=== PATIENT | male | born 1950 | race Caucasian/White ===

== ENCOUNTER → 2024-03-03 13:00 | Outpatient (REF) | payer MEDICARE, SELFPAY | LOC: RCS 13:00 | PROVIDERS: ATTENDING PHYSICIAN Family Medicine | DX: R06.02 Shortness of breath (principal) | CPT/HCPCS: 93017 ==

== ENCOUNTER → 2024-03-08 10:35 | Outpatient (REF) | payer MEDICARE, SELFPAY | LOC: RCS 10:35 | PROVIDERS: ATTENDING PHYSICIAN Family Medicine | DX: R06.02 Shortness of breath (principal) | CPT/HCPCS: 93306 ==

== ENCOUNTER → 2024-03-25 12:07 | Outpatient (REF) | payer MEDICARE, SELFPAY | LOC: RAD 12:07 | PROVIDERS: ATTENDING PHYSICIAN Family Medicine | DX: R06.02 Shortness of breath (principal) | CPT/HCPCS: 94727; 94729; 88738; 94060 ==

== ENCOUNTER → 2024-03-26 11:01 | Outpatient (REF) | payer MEDICARE, SELFPAY | LOC: RAD 11:01 | PROVIDERS: ATTENDING PHYSICIAN Internal Medicine Gastroenterology; FAMILY PHYSICIAN Family Medicine | DX: K86.2 Cyst of pancreas (principal) | CPT/HCPCS: 74178; Q9967 ==

== ENCOUNTER 2024-03-28 15:51 | Emergency (ER) | payer MEDICARE, SELFPAY ==
[2024-03-28 15:59] VITALS: BP 138/98
[2024-03-28 16:38] LABS: % Basophils 0.7 % (0-2); % Eosinophils 0.9 % (0-6); % Immature Granulocytes 0.3 % (0-0.5); % Lymphocytes 14.7 % (20.5-51.1); % Monocytes 11.9 % (1.7-9.3); % Neutrophils 71.5 % (42.2-75.2); Absolute Basophils 0.1 10^3/uL (0-0.2); Absolute Eosinophils 0.1 10^3/uL (0-0.7); Absolute Lymphocytes 1.1 10^3/uL (1.2-3.4); Absolute Monocytes 0.9 10^3/uL (0.1-0.6); Absolute Neutrophils 5.3 10^3/uL (1.4-6.5); Hematocrit 33.1 % (39.0-52.0); Hemoglobin 11.6 g/dL (13.0-18.0); Mean Corpuscular Hgb 32.9 pg (27.0-31.0); Mean Corpuscular Volume 93.8 fL (80.0-94.0); Nucleated Red Blood Cells % 0 % (-); Platelet Count 245 10^3/uL (130-400); Red Blood Cell Count 3.53 10^6/uL (4.70-6.10); Red Cell Dist. Width 13.1 % (11.5-14.5); White Blood Cell Count 7.5 10^3/uL (4.8-10.8)
[2024-03-28 16:45] LABS: APTT 26.6 Sec (23.4-35.0)
[2024-03-28 16:56] LABS: ALT (SGPT) 17 U/L (0-50); AST (SGOT) 25 U/L (17-59); Alkaline Phosphatase 79 U/L (38-126); Blood Urea Nitrogen 21 mg/dl (9-20); Calcium 9.3 mg/dl (8.4-10.2); Carbon Dioxide 22 mmol/L (22-30); Chloride 102 mmol/L (98-107); Glucose 103 mg/dl (70-99); Potassium 4.8 mmol/L (3.5-5.1); Sodium 138 mmol/L (135-145); Total Bilirubin 0.4 mg/dl (0.2-1.3); eGFR > 60.00
[2024-03-28 17:50] VITALS: BMI 20.6
[2024-03-28 17:55] VITALS: BP 140/81
[2024-03-28 18:00] VITALS: BP 138/77
--- NOTE | 2024-03-28 18:20 | ED.GENMED ---
History of Present Illness
General
Chief Complaint: Weakness
Source: patient
Exam Limitations: none
Time Seen by Provider: 03/28/24 17:59
History of Present Illness
History of Present Illness:
This is a 74 year old male that comes in with c/o a renal infarction. Patient states that he had a CT scan done on the . States that this is a routine CT every 2 years as they are watching a pancreatic cyst. States that they wound a right renal
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 States that he has no pain and who knows how long this has been there. States that he went to see the PCP today and he was told to come to the ER. States that he does have issues with urinary
frequency. Denies any fever, chills, chest pain, SOB, abd pain, nausea, vomiting, diarrhea, headache, dizziness, urinary burning.
Past History
Past History
ED Past Medical History: Arrthythmia (Atrial fib), Other (IBS, Headaches, GI bleeding, ) and Other (Diverticulosis with bleeding)
ED Past Surgical History: Urological (Right testical removed. ) and Other (Hemorrhoid surgery, )
Social History
Tobacco: Non-smoker
Alcohol: Occasional
Drug: None
Personal:
Living: with family
Review of Systems
Review of Systems
All Other Systems: ROS reviewed and negative except as documented in HPI and ROS
Constitutional: Reports no symptoms; Denies fever or chills
EENT: Reports no symptoms
Respiratory: Reports no symptoms; Denies cough or trouble breathing
Cardiac: Reports no symptoms; Denies chest pain
ABD/GI: Reports no symptoms; Denies abdominal pain, nausea, vomiting or diarrhea
: Reports frequency; Denies dysuria or urgency
Musculoskeletal: Reports no symptoms
Skin: Reports no symptoms
Neurological: Reports no symptoms; Denies dizzy or headache
Psychiatric: Reports no symptoms
Phy Exam
General Physical Exam
General Presentation: well appearing and no apparent distress
General age: appears stated age
General Skin: warm and dry
General Habitus: elderly
General Mental: alert
General Hydration: appears well hydrated
ENT Exam
ENT Exam: TM's normal, pharynx normal and neck supple
Eye Exam
Eye Exam: EOMI
Cardiovascular Exam
Cardiovascular Exam: regular rate/rhythm, no edema and normal peripheral pulses
Pulmonary Exam
Pulmonary Exam: lungs clear, no respiratory distress, no rales, chest non tender, no crackles, no rhonchi, no wheezing and no cough
Gastrointestinal Exam
Gastrointestinal Exam: normal bowel sounds, non tender, soft, no organomegaly, no pulsatile mass and non distended
Musculoskeletal Exam
Musculoskeletal Exam: full ROM and no edema
Skin Exam
Skin Exam: normal color, warm/dry, no rash and no petechia
Psychiatric Exam
Psychiatric Exam: normal mood/affect
Course
Orders/Labs/Results
Orders:
Orders
03/28/24 16:15
Complete Blood Count/With Diff Urgent
Comprehensive Metabolic Panel Urgent
PTT Urgent
Abnormal Lab Results
03/28/24
16:15
RBC 3.53 L 10^6/uL
(4.70-6.10)
Hgb 11.6 L g/dL
(13.0-18.0)
Hct 33.1 L %
(39.0-52.0)
MCH 32.9 H pg
(27.0-31.0)
MPV 11.0 H fL
(7.4-10.4)
Absolute Lymphs (auto) 1.1 L 10^3/uL
(1.2-3.4)
Absolute Monos (auto) 0.9 H 10^3/uL
(0.1-0.6)
Lymphocytes % 14.7 L %
(20.5-51.1)
Monocytes % 11.9 H %
(1.7-9.3)
BUN 21 H mg/dl
(9-20)
Glucose 103 H mg/dl
(70-99)
03/28/24 16:15
03/28/24 16:15
H/H slightly low. Slight Dehydration. Glucose nonfasting. PTT 26.6
Vital Signs
Initial and Last Documented VS:
Initial Vital Signs
Temp Pulse Resp BP Pulse Ox
98.3 F 69 18 138/98 93
03/28/24 15:59 03/28/24 15:59 03/28/24 15:59 03/28/24 15:59 03/28/24 15:59
Last Documented Vital Signs
Temp Pulse Resp BP Pulse Ox
98.3 F 73 18 138/77 98
03/28/24 15:59 03/28/24 18:00 03/28/24 18:04 03/28/24 18:00 03/28/24 18:05
MDM/Problems Addressed
Differential Diagnosis Includes:
Renal vein Thrombosis
MDM/Problems Addressed:
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 States that this CT was done as a routine CT every 2 years as they are watching his Pancreatic cyst. States that these findings
were found and the PCP sent him in. Patient states that he does not want to stay.
Will check labs. Spoke with Dr. Crowley and Dr. Bruce. They are both in agreement that at this time nothing needs to be done in the hospital. Will start patient on Eliquis and have patient follow up with the Mining Engineering Technologist for further evaluation. Patient to
return with any concerns.
Chronic conditions affecting care:
NA
Acute Exacerbation and/or Progression of Chronic Illness:
NA
*Pulse Oximetry
Patient hypoxic: no
*EKG
Interpreted by ED Provider?: NA
Rate: EKG- N/A
*Traffic Workforce Representative Interpretation
Rate: normal
Heart Rate: 71
*Critical Care Note
Total Time (30-74mins, 75-104mins- exclusive of procedures): Not Applicable
ED Attending Note
-
Portions of this chart may have been created with voice recognition software.� Occasional wrong word or��sound alike� substitutions may have occurred due to the inherent limitations of voice recognition software.
Discharge Plan
Departure
Patient Disposition: Home (Routine Discharge)
Date of Disposition: 03/28/24
Time of Disposition: 18:55
Patient with high blood pressure during this ER visit?: Yes
Condition: Good
Covid-19: Not Applicable
Discharge Problem:
renal infarction with Vein Thrombosis
Instructions: BLOOD PRESSURE
Prescriptions:
New
Eliquis 5 mg tablet
10 mg PO BID 7 Days Qty: 28 0RF
No Action
multivitamin with folic acid [Tab-A-Yossi] 1 TABLET tablet
1 tab PO DAILY
alfuzosin 10 MG tablet extended release 24 hr
10 mg PO DAILY
bimatoprost [Lumigan] 1 DROP drops
1 drp ophthalmic (eye) DAILY
psyllium husk [Konsyl Sugar-Free] 0.52 GM capsule
0.52 gm PO DAILY Qty: 30 0RF
Referrals:
Milton Espinosa, [Active] - Follow up in 2-3 days
Ronda Gee MD [Family Provider] -
Activity Restrictions/Additional Instructions:
As discussed, your blood work shows very slight Dehydration. Please increase your water intake to 8-8oz glasses daily. After speaking with Bufferer and Vascular surgery they are in agreement that you can go home on a blood thinner. You have been
started on Eliquis 10mg BID for the next 7 days. You will need to follow up with the family doctor in 2-3 days as they will give your a second prescription as the dosage will be decreased at that time to 5mg. You will also need to follow up with the
Mining Engineering Technologist for further evaluation in the next 2-3 days. IF YOU HAVE PAIN, BLEEDING OR YOU HAVE ANY OTHER CONCERNS PLEASE RETURN TO THE EMERGENCY ROOM.
Interventions
Interventions:
*Risk Screen - Suicide Last Done: 03/28/24 15:54
*General Assessment Last Done: 03/28/24 15:59
*Neglect/Abuse Screening Last Done: 03/28/24 17:51
ED- Fall Risk Assessment Last Done: 03/28/24 18:07
*ED COVID-19 Vaccine History Last Done: 03/28/24 17:51
ED- Cardiac Assessment Last Done: 03/28/24 18:05
ED- Neurological Assessment Last Done: 03/28/24 18:05
ED- Pulmonary Assessment Last Done: 03/28/24 18:05
Discharge Date and Time
Print Language: DUTCH
[2024-03-28 19:00] VITALS: BP 127/83
[2024-03-28] MEDS: ELIQUIS 10 MG PO (19:02)
== END 2024-03-28 19:24 | disposition home or self-care (01) ==
LOC: EMR 15:51
PROVIDERS: Emergency Medicine; EMERGENCY PHYSICIAN Emergency Medicine; FAMILY PHYSICIAN Family Medicine
DX: N28.0 Ischemia and infarction of kidney (principal); I82.3 Embolism and thrombosis of renal vein
CPT/HCPCS: 99283; 80053; 85025; 85730

== ENCOUNTER → 2024-06-09 15:14 | Outpatient (REF) | payer MEDICARE, SELFPAY ==
[2024-06-09 11:35] LABS: % Basophils 0.5 % (0-2); % Eosinophils 0.8 % (0-6); % Immature Granulocytes 0.5 % (0-0.5); % Lymphocytes 13.5 % (20.5-51.1); % Monocytes 12.6 % (1.7-9.3); % Neutrophils 72.1 % (42.2-75.2); Absolute Eosinophils 0.1 10^3/uL (0-0.7); Absolute Monocytes 0.9 10^3/uL (0.1-0.6); Absolute Neutrophils 5.3 10^3/uL (1.4-6.5); Hematocrit 35.1 % (39.0-52.0); Hemoglobin 11.2 g/dL (13.0-18.0); Mean Corp Hgb Conc. 31.9 g/dL (33.0-37.0); Mean Corpuscular Volume 100.3 fL (80.0-94.0); Mean Platelet Volume 11.4 fL (7.4-10.4); Nucleated Red Blood Cells % 0 % (-); Platelet Count 264 10^3/uL (130-400); Red Cell Dist. Width 13.5 % (11.5-14.5); White Blood Cell Count 7.4 10^3/uL (4.8-10.8)
== END ==
LOC: OIDL 15:14
PROVIDERS: ATTENDING PHYSICIAN Internal Medicine Hematology & Oncology
DX: I82.3 Embolism and thrombosis of renal vein (principal); D50.0 Iron deficiency anemia secondary to blood loss (chronic)
CPT/HCPCS: 85025

== ENCOUNTER → 2024-06-23 13:40 | Outpatient (REF) | payer MEDICARE, SELFPAY ==
[2024-06-23 14:10] LABS: % Basophils 0.6 % (0-2); % Eosinophils 1.3 % (0-6); % Immature Granulocytes 0.4 % (0-0.5); % Lymphocytes 16.3 % (20.5-51.1); % Monocytes 13.8 % (1.7-9.3); % Neutrophils 67.6 % (42.2-75.2); Absolute Eosinophils 0.1 10^3/uL (0-0.7); Absolute Lymphocytes 1.1 10^3/uL (1.2-3.4); Absolute Monocytes 0.9 10^3/uL (0.1-0.6); Absolute Neutrophils 4.6 10^3/uL (1.4-6.5); Hematocrit 30.8 % (39.0-52.0); Hemoglobin 9.9 g/dL (13.0-18.0); Mean Corp Hgb Conc. 32.1 g/dL (33.0-37.0); Mean Corpuscular Hgb 31.6 pg (27.0-31.0); Mean Corpuscular Volume 98.4 fL (80.0-94.0); Mean Platelet Volume 11.3 fL (7.4-10.4); Nucleated Red Blood Cells % 0 % (-); Platelet Count 247 10^3/uL (130-400); Red Blood Cell Count 3.13 10^6/uL (4.70-6.10); Red Cell Dist. Width 14.2 % (11.5-14.5); White Blood Cell Count 6.8 10^3/uL (4.8-10.8)
== END ==
LOC: OIDL 13:40
PROVIDERS: ATTENDING PHYSICIAN Internal Medicine Hematology & Oncology
DX: I82.3 Embolism and thrombosis of renal vein (principal); D50.0 Iron deficiency anemia secondary to blood loss (chronic)
CPT/HCPCS: 85025

== ENCOUNTER 2024-06-30 13:27 | Emergency (ER) | payer MEDICARE, SELFPAY ==
[2024-06-30 13:30] VITALS: BP 134/77
[2024-06-30 15:03] LABS: % Basophils 0.6 % (0-2); % Eosinophils 1.2 % (0-6); % Immature Granulocytes 0.3 % (0-0.5); % Lymphocytes 13.7 % (20.5-51.1); % Monocytes 12.3 % (1.7-9.3); % Neutrophils 71.9 % (42.2-75.2); Absolute Basophils 0.1 10^3/uL (0-0.2); Absolute Eosinophils 0.1 10^3/uL (0-0.7); Absolute Lymphocytes 1.2 10^3/uL (1.2-3.4); Absolute Monocytes 1.1 10^3/uL (0.1-0.6); Absolute Neutrophils 6.3 10^3/uL (1.4-6.5); Hematocrit 31.8 % (39.0-52.0); Hemoglobin 10.7 g/dL (13.0-18.0); Mean Corp Hgb Conc. 33.6 g/dL (33.0-37.0); Mean Corpuscular Hgb 32.3 pg (27.0-31.0); Mean Corpuscular Volume 96.1 fL (80.0-94.0); Mean Platelet Volume 10.5 fL (7.4-10.4); Nucleated Red Blood Cells % 0 % (-); Platelet Count 267 10^3/uL (130-400); Red Blood Cell Count 3.31 10^6/uL (4.70-6.10); Red Cell Dist. Width 14.2 % (11.5-14.5); White Blood Cell Count 8.8 10^3/uL (4.8-10.8)
[2024-06-30 15:18] LABS: ALT (SGPT) 35 U/L (0-50); AST (SGOT) 43 U/L (17-59); Albumin 4.1 g/dl (3.5-5.0); Alkaline Phosphatase 128 U/L (38-126); Blood Urea Nitrogen 17 mg/dl (9-20); Calcium 9.3 mg/dl (8.4-10.2); Carbon Dioxide 27 mmol/L (22-30); Chloride 102 mmol/L (98-107); Glucose 95 mg/dl (70-99); Potassium 4.8 mmol/L (3.5-5.1); Sodium 135 mmol/L (135-145); Total Bilirubin 0.3 mg/dl (0.2-1.3); Total Protein 7.6 g/dl (6.3-8.2); eGFR > 60.00
--- NOTE | 2024-06-30 15:42 | ED.GENMED ---
History of Present Illness
General
Chief Complaint: Fall
Time Seen by Provider: 06/30/24 14:16
History of Present Illness
History of Present Illness:
74-year-old male with history of A-fib on Eliquis presents to the emergency department for evaluation after a fall 2 nights ago. He apparently was up as his normal in the middle the night for a trip to the bathroom when he fell to the ground and
potentially struck his head. He denies head strike but his is insistent that he struck his head. He feels generally weak but denies any other complaints. He went to his normal IV iron infusion today at the infusion center and was directed to
the ED for further evaluation
Past History
Past History
ED Past Medical History: Arrthythmia (Atrial fib), Other (IBS, Headaches, GI bleeding, ) and Other (Diverticulosis with bleeding)
ED Past Surgical History: Urological (Right testical removed. ) and Other (Hemorrhoid surgery, )
Social History
Tobacco: Non-smoker
Alcohol: Occasional
Drug: None
Personal:
Living: with family
Review of Systems
Review of Systems
Allergies reviewed?: Yes
All Other Systems: ROS reviewed and negative except as documented in HPI and ROS
Phy Exam
Physical Exam
Physical Exam:
GEN: Well appearing, NAD, WDWN
HEENT: Normocephalic and atraumatic, oral mucosa moist, no scleral icterus, no nasal congestion
Cardiac: Regular rate
Lung: No respiratory distress, no tachypnea
MSK: No gross deformity or injuries
Skin: Good color, no pallor or jaundice, no rashes
Neuro: AO x3; CN II-XII grossly intact. BUE strength 5/5 in all cunningham, sensation intact and symmetric. BLE strength 5/5 in all cunningham, sensation intact and symmetric
Psych: Calm, cooperative
Course
Orders/Labs/Results
Orders:
Orders
06/30/24 13:[address] [CT Head W/o Iv Contrast] Urgent
Comment:
Reason For Exam: fall on eliquis
06/30/24 14:52
Complete Blood Count/With Diff Urgent
Comprehensive Metabolic Panel Urgent
Abnormal Lab Results
06/30/24
14:52
RBC 3.31 L 10^6/uL
(4.70-6.10)
Hgb 10.7 L g/dL
(13.0-18.0)
Hct 31.8 L %
(39.0-52.0)
MCV 96.1 H fL
(80.0-94.0)
MCH 32.3 H pg
(27.0-31.0)
MPV 10.5 H fL
(7.4-10.4)
Absolute Monos (auto) 1.1 H 10^3/uL
(0.1-0.6)
Lymphocytes % 13.7 L %
(20.5-51.1)
Monocytes % 12.3 H %
(1.7-9.3)
Alkaline Phosphatase 128 H U/L
(38-126)
06/30/24 14:52
06/30/24 14:52
Vital Signs
Initial and Last Documented VS:
Initial Vital Signs
Temp Pulse Resp BP Pulse Ox
97.9 F 75 18 134/77 98
06/30/24 13:30 06/30/24 13:30 06/30/24 13:30 06/30/24 13:30 06/30/24 13:30
Last Documented Vital Signs
Temp Pulse Resp BP Pulse Ox
97.9 F 67 19 124/70 98
06/30/24 13:30 06/30/24 16:09 06/30/24 16:09 06/30/24 16:09 06/30/24 13:30
MDM/Problems Addressed
MDM/Problems Addressed:
CT of the head is unremarkable, labs obtained due to the patient's reported weakness, his hemoglobin is baseline, no other abnormalities. Discharged in stable condition
*Critical Care Note
Total Time (30-74mins, 75-104mins- exclusive of procedures): Not Applicable
ED Attending Note
-
Portions of this chart may have been created with voice recognition software.� Occasional wrong word or��sound alike� substitutions may have occurred due to the inherent limitations of voice recognition software.
Discharge Plan
Departure
Patient Disposition: Home (Routine Discharge)
Date of Disposition: 06/30/24
Time of Disposition: 15:42
Patient with high blood pressure during this ER visit?: No
Discharge Problem:
Fall
Instructions: Preventing falls in adults
Prescriptions:
No Action
multivitamin with folic acid [Tab-A-Yossi] 1 TABLET tablet
1 tab PO DAILY
alfuzosin 10 MG tablet extended release 24 hr
10 mg PO DAILY
bimatoprost [Lumigan] 1 DROP drops
1 drp ophthalmic (eye) DAILY
psyllium husk [Konsyl Sugar-Free] 0.52 GM capsule
0.52 gm PO DAILY Qty: 30 0RF
Eliquis 5 mg tablet
10 mg PO BID 7 Days Qty: 28 0RF
Referrals:
Ronda Gee MD [Family Provider] -
Interventions
Interventions:
*Risk Screen - Suicide Last Done: 06/30/24 13:30
*General Assessment Last Done: 06/30/24 13:30
*Neglect/Abuse Screening Last Done: 06/30/24 13:30
*Nursing Disposition Last Done: 06/30/24 16:10
ED-Musculoskeletal Assessment Last Done: 06/30/24 14:29
ED- Neurological Assessment Last Done: 06/30/24 14:29
ED-Skin Assessment Last Done: 06/30/24 14:29
Discharge Date and Time
Discharge Date/Time: 06/30/24 16:10
Print Language: ZIMBABWEAN
[2024-06-30 16:09] VITALS: BP 124/70
== END 2024-06-30 16:10 | disposition home or self-care (01) ==
LOC: EMR 13:27
PROVIDERS: Physician Assistant; EMERGENCY PHYSICIAN Emergency Medicine; FAMILY PHYSICIAN Family Medicine
DX: Z04.3 Encounter for examination and observation following other accident (principal); I48.91 Unspecified atrial fibrillation; Z79.01 Long term (current) use of anticoagulants
CPT/HCPCS: 99284; 70450; 80053; 85025

== ENCOUNTER → 2024-07-07 13:33 | Outpatient (REF) | payer MEDICARE, SELFPAY ==
[2024-07-07 13:42] LABS: % Basophils 0.6 % (0-2); % Eosinophils 2.3 % (0-6); % Immature Granulocytes 0.3 % (0-0.5); % Lymphocytes 15.2 % (20.5-51.1); % Monocytes 14.4 % (1.7-9.3); % Neutrophils 67.2 % (42.2-75.2); Absolute Basophils 0.1 10^3/uL (0-0.2); Absolute Eosinophils 0.2 10^3/uL (0-0.7); Absolute Lymphocytes 1.2 10^3/uL (1.2-3.4); Absolute Monocytes 1.1 10^3/uL (0.1-0.6); Absolute Neutrophils 5.3 10^3/uL (1.4-6.5); Hemoglobin 10.4 g/dL (13.0-18.0); Mean Corp Hgb Conc. 32.5 g/dL (33.0-37.0); Mean Corpuscular Hgb 31.9 pg (27.0-31.0); Mean Corpuscular Volume 98.2 fL (80.0-94.0); Mean Platelet Volume 10.5 fL (7.4-10.4); Platelet Count 267 10^3/uL (130-400); Red Blood Cell Count 3.26 10^6/uL (4.70-6.10); Red Cell Dist. Width 14.2 % (11.5-14.5); White Blood Cell Count 7.9 10^3/uL (4.8-10.8)
== END ==
LOC: OIDL 13:33
PROVIDERS: ATTENDING PHYSICIAN Internal Medicine Hematology & Oncology
DX: I82.3 Embolism and thrombosis of renal vein (principal); D50.0 Iron deficiency anemia secondary to blood loss (chronic)
CPT/HCPCS: 85025

== ENCOUNTER → 2024-08-25 13:39 | Outpatient (REF) | payer MEDICARE, SELFPAY ==
[2024-08-25 13:45] LABS: % Basophils 0.5 % (0-2); % Eosinophils 1.1 % (0-6); % Immature Granulocytes 0.1 % (0-0.5); % Lymphocytes 13.2 % (20.5-51.1); % Monocytes 12.9 % (1.7-9.3); % Neutrophils 72.2 % (42.2-75.2); Absolute Eosinophils 0.1 10^3/uL (0-0.7); Absolute Lymphocytes 1.2 10^3/uL (1.2-3.4); Absolute Monocytes 1.1 10^3/uL (0.1-0.6); Absolute Neutrophils 6.4 10^3/uL (1.4-6.5); Hematocrit 32.3 % (39.0-52.0); Hemoglobin 10.6 g/dL (13.0-18.0); Mean Corp Hgb Conc. 32.8 g/dL (33.0-37.0); Mean Corpuscular Hgb 32.2 pg (27.0-31.0); Mean Corpuscular Volume 98.2 fL (80.0-94.0); Mean Platelet Volume 10.8 fL (7.4-10.4); Platelet Count 292 10^3/uL (130-400); Red Blood Cell Count 3.29 10^6/uL (4.70-6.10); White Blood Cell Count 8.8 10^3/uL (4.8-10.8)
[2024-08-25 14:57] LABS: D-Dimer 0.47 ug/mlFEU (0.00-0.50)
[2024-08-25 15:00] LABS: Nucleated Red Blood Cells % 0 % (-); Reticulocyte Count 1.1 % (0.4-2.8)
[2024-08-25 15:02] LABS: Blood Urea Nitrogen 19 mg/dl (9-20); LDH 196 U/L (120-246)
[2024-08-27 15:41] LABS: Haptoglobin 303 mg/dL (30-200)
== END ==
LOC: OIDL 13:39
PROVIDERS: ATTENDING PHYSICIAN Internal Medicine Hematology & Oncology
DX: I82.3 Embolism and thrombosis of renal vein (principal); D50.0 Iron deficiency anemia secondary to blood loss (chronic)
CPT/HCPCS: 82565; 83010; 83615; 84520; 85025; 85045; 85379

== ENCOUNTER → 2024-08-26 11:32 | Outpatient (REF) | payer MEDICARE, SELFPAY | LOC: RAD 11:32 | PROVIDERS: ATTENDING PHYSICIAN Internal Medicine Hematology & Oncology; FAMILY PHYSICIAN Family Medicine | DX: I82.3 Embolism and thrombosis of renal vein (principal); D50.0 Iron deficiency anemia secondary to blood loss (chronic) | CPT/HCPCS: 74160; Q9967 ==

== ENCOUNTER 2024-09-12 11:23 | Emergency (ER) | payer MEDICARE, SELFPAY ==
[2024-09-12 11:26] VITALS: BP 152/74
--- NOTE | 2024-09-12 11:55 | ED.GENMED ---
History of Present Illness
General
Chief Complaint: Male Genito-Urinary Symptoms
Source: patient and spouse
Exam Limitations: none
Time Seen by Provider: 09/12/24 11:32
Nursing documentation reviewed up to this point in time: agreed with
History of Present Illness
History of Present Illness:
74-year-old male with past medical history of A-fib and previous renal artery thrombosis currently on Eliquis, presenting to the emergency department today with concerns of blood and clots in his urine starting this morning. Did have some
discomfort with urination this morning. Does feel that he has been able to fully urinate. Denies abdominal pain chest pain shortness of breath
Past History
Past History
ED Past Medical History: Arrthythmia (Atrial fib), Other (IBS, Headaches, GI bleeding, ) and Other (Diverticulosis with bleeding)
ED Past Surgical History: Urological (Right testical removed. ) and Other (Hemorrhoid surgery, )
Social History
Tobacco: Non-smoker
Alcohol: Occasional
Drug: None
Personal:
Living: with family
Review of Systems
Review of Systems
Allergies reviewed?: Yes
All Other Systems: ROS reviewed and negative except as documented in HPI and ROS
Phy Exam
Physical Exam
Physical Exam:
GENERAL: Alert , in no apparent distress
EYE: pupils equal and reactive
NECK: Supple, no significant adenopathy.
ENT: o/p clr, mmm.
CARDIAC: Regular rate and rhythm .
LUNGS: Clear breath sounds bilaterally, no acute respiratory distress, no wheezes/rales/rhonchi
ABDOMEN: Soft, without focal tenderness, no r/g, no cvat
NEUROLOGICAL: Alert and oriented, no focal neuro deficits
SKIN: Warm and dry, skin intact.
MUSCULOSKELETAL: No edema, well perfused.
PSYCH: Normal and appropriate interaction.
Course
Orders/Labs/Results
Orders:
Orders
09/12/24 12:34
CBC/With Diff [Complete Blood Count/With Diff] Urgent
CMP [Comprehensive Metabolic Panel] Urgent
Urinalysis Reflex To Culture Urgent
Date Specimen was Collected: 09/12/24
Time Specimen was Collected: 12:33
Urine Microscopic Reflex Cult Urgent
Urine Culture Urgent
VICKEY Source: U
Specimen Description:
Date Specimen was Collected: 09/12/24
Time Specimen was Collected: 12:33
Abnormal Lab Results
09/12/24
12:34
RBC 3.11 L 10^6/uL
(4.70-6.10)
Hgb 9.7 L g/dL
(13.0-18.0)
Hct 29.5 L %
(39.0-52.0)
MCV 94.9 H fL
(80.0-94.0)
MCH 31.2 H pg
(27.0-31.0)
MCHC 32.9 L g/dL
(33.0-37.0)
MPV 11.2 H fL
(7.4-10.4)
Absolute Lymphs (auto) 0.8 L 10^3/uL
(1.2-3.4)
Absolute Monos (auto) 1.1 H 10^3/uL
(0.1-0.6)
Neutrophils % 76.3 H %
(42.2-75.2)
Lymphocytes % 9.3 L %
(20.5-51.1)
Monocytes % 13.0 H %
(1.7-9.3)
Sodium 134 L mmol/L
(135-145)
Albumin 3.4 L g/dl
(3.5-5.0)
Ur Occult Blood Reflex 4+ A
(Negative)
Leukocyte Esterase Rfl 1+ A
(Negative)
Urine RBC >100 A /HPF
(0-2)
Urine Albumin (Reflex) 4+ A
(Neg - Trace)
09/12/24 12:34
09/12/24 12:34
Vital Signs
Initial and Last Documented VS:
Initial Vital Signs
Temp Pulse Resp BP Pulse Ox
98.4 F 71 20 152/74 98
09/12/24 11:26 09/12/24 11:26 09/12/24 11:26 09/12/24 11:26 09/12/24 11:26
Last Documented Vital Signs
Temp Pulse Resp BP Pulse Ox
98.4 F 65 17 160/77 98
09/12/24 11:26 09/12/24 12:35 09/12/24 12:35 09/12/24 12:35 09/12/24 12:45
MDM/Problems Addressed
MDM/Problems Addressed:
74-year-old male presenting to the emergency department today with concerns of blood in his urine. Otherwise vital signs here are normal no abdominal pain CT was obtained here as an outpatient 2 week ago did not show any significant stones in the
kidneys. Here labs without emergent findings. Patient able to urinate here no white blood cells or evidence of infection in the urine advised for close outpatient follow-up with urology and given strict return precautions if he is unable to
urinate at home.
*Critical Care Note
Total Time (30-74mins, 75-104mins- exclusive of procedures): Not Applicable
ED Attending Note
-
Portions of this chart may have been created with voice recognition software.� Occasional wrong word or��sound alike� substitutions may have occurred due to the inherent limitations of voice recognition software.
Discharge Plan
Departure
Patient Disposition: Home (Routine Discharge)
Date of Disposition: 09/12/24
Time of Disposition: 13:47
Patient with high blood pressure during this ER visit?: No
Condition: Good
Covid-19: Not Applicable
Discharge Problem:
Hematuria
Instructions: Blood in the Urine (Hematuria), Adult (DC)
Prescriptions:
No Action
multivitamin with folic acid [Tab-A-Yossi] 1 TABLET tablet
1 tab PO DAILY
alfuzosin 10 MG tablet extended release 24 hr
10 mg PO DAILY
bimatoprost [Lumigan] 1 DROP drops
1 drp ophthalmic (eye) DAILY
psyllium husk [Konsyl Sugar-Free] 0.52 GM capsule
0.52 gm PO DAILY Qty: 30 0RF
Eliquis 5 mg tablet
10 mg PO BID 7 Days Qty: 28 0RF
Referrals:
Shahab Kang MD [Active] - Follow up in 2-3 days
Ronda Gee MD [Family Provider] -
Activity Restrictions/Additional Instructions:
You came to the emergency department today with concerns of blood in your urine. Please help closely with urology. Return for any worsening, new or concerning symptoms.
Interventions
Interventions:
*General Assessment Last Done: 09/12/24 11:26
ED-Male Genitourinary Assessment Last Done: 09/12/24 12:54
Discharge Date and Time
Print Language: MALAWIAN
[2024-09-12 12:35] VITALS: BP 160/77; BMI 21.5
[2024-09-12 12:53] LABS: % Basophils 0.6 % (0-2); % Eosinophils 0.6 % (0-6); % Immature Granulocytes 0.2 % (0-0.5); % Lymphocytes 9.3 % (20.5-51.1); % Neutrophils 76.3 % (42.2-75.2); Absolute Basophils 0.1 10^3/uL (0-0.2); Absolute Eosinophils 0.1 10^3/uL (0-0.7); Absolute Lymphocytes 0.8 10^3/uL (1.2-3.4); Absolute Monocytes 1.1 10^3/uL (0.1-0.6); Absolute Neutrophils 6.5 10^3/uL (1.4-6.5); Hematocrit 29.5 % (39.0-52.0); Hemoglobin 9.7 g/dL (13.0-18.0); Mean Corp Hgb Conc. 32.9 g/dL (33.0-37.0); Mean Corpuscular Hgb 31.2 pg (27.0-31.0); Mean Corpuscular Volume 94.9 fL (80.0-94.0); Mean Platelet Volume 11.2 fL (7.4-10.4); Nucleated Red Blood Cells % 0 % (-); Platelet Count 290 10^3/uL (130-400); Red Blood Cell Count 3.11 10^6/uL (4.70-6.10); Red Cell Dist. Width 13.9 % (11.5-14.5); White Blood Cell Count 8.6 10^3/uL (4.8-10.8)
[2024-09-12 12:59] LABS: ALT (SGPT) 16 U/L (0-50); AST (SGOT) 22 U/L (17-59); Albumin 3.4 g/dl (3.5-5.0); Alkaline Phosphatase 116 U/L (38-126); Blood Urea Nitrogen 18 mg/dl (9-20); Calcium 9.2 mg/dl (8.4-10.2); Carbon Dioxide 25 mmol/L (22-30); Chloride 103 mmol/L (98-107); Estimated Creatinine Clearance 61 ml/min; Glucose 95 mg/dl (70-99); Potassium 4.7 mmol/L (3.5-5.1); Sodium 134 mmol/L (135-145); Total Bilirubin 0.5 mg/dl (0.2-1.3); Total Protein 6.8 g/dl (6.3-8.2); Urine Albumin 4+ (Neg - Trace); Urine Bilirubin Negative (Negative); Urine Character Bloody (Clear); Urine Color Red; Urine Glucose Negative (Negative); Urine Ketone Negative (Negative); Urine Leukocyte 1+ (Negative); Urine Nitrite Negative (Negative); Urine Occult Blood 4+ (Negative); Urine Specific Gravity 1.015 (<1.030); Urine Urobilinogen Negative (Neg - 1+); Urine pH 6.5 (5.0-9.0); eGFR > 60.00
[2024-09-12 13:00] VITALS: BP 152/86
[2024-09-12 13:35] LABS: Urine Squamous Cell 0-2 /LPF (Few)
[2024-09-12 13:36] LABS: Urine Red Blood Cell >100 /HPF (0-2); Urine White Cell 0-2 /HPF (0-5)
== END 2024-09-12 14:20 | disposition home or self-care (01) ==
LOC: EMR 11:23
PROVIDERS: Physician Assistant; EMERGENCY PHYSICIAN Emergency Medicine; FAMILY PHYSICIAN Family Medicine
DX: R31.9 Hematuria, unspecified (principal); I48.91 Unspecified atrial fibrillation
CPT/HCPCS: 99283; 80053; 81003; 81015; 85025; 87077; 87086

== ENCOUNTER → 2024-10-24 08:43 | Outpatient (REF) | payer MEDICARE, SELFPAY ==
[2024-10-24] VITALS (8 sets, daily range): BP systolic 57–125; BP diastolic 63–89
[2024-10-24 09:03] LABS: % Basophils 0.4 % (0-2); % Eosinophils 0.2 % (0-6); % Immature Granulocytes 0.5 % (0-0.5); % Lymphocytes 7.1 % (20.5-51.1); % Monocytes 12.6 % (1.7-9.3); % Neutrophils 79.2 % (42.2-75.2); Absolute Immature Granulocytes 0.1 10^3/uL (0-0.05); Absolute Lymphocytes 0.8 10^3/uL (1.2-3.4); Absolute Monocytes 1.3 10^3/uL (0.1-0.6); Absolute Neutrophils 8.4 10^3/uL (1.4-6.5); Hematocrit 28.1 % (39.0-52.0); Hemoglobin 9.2 g/dL (13.0-18.0); Mean Corp Hgb Conc. 32.7 g/dL (33.0-37.0); Mean Corpuscular Hgb 31.1 pg (27.0-31.0); Mean Corpuscular Volume 94.9 fL (80.0-94.0); Mean Platelet Volume 10.7 fL (7.4-10.4); Nucleated Red Blood Cells % 0 % (-); Platelet Count 288 10^3/uL (130-400); Red Blood Cell Count 2.96 10^6/uL (4.70-6.10); Red Cell Dist. Width 13.9 % (11.5-14.5); White Blood Cell Count 10.6 10^3/uL (4.8-10.8)
[2024-10-24 09:14] LABS: INR 1.23; PT 15.8 Sec (11.4-14.6)
[2024-10-24] MEDS: NSS (PRESERVATIVE FREE) 0.25 ML IV (10:22)
[2024-10-24] MEDS: ATIVAN 0.5 MG IV (10:22)
[2024-10-24] MEDS: FLUSH (NSS) 1 FLUSH IV (10:22)
== END ==
LOC: RADI 08:43
PROVIDERS: ATTENDING PHYSICIAN Internal Medicine Hematology & Oncology; FAMILY PHYSICIAN Family Medicine
DX: D50.0 Iron deficiency anemia secondary to blood loss (chronic) (principal); D68.8 Other specified coagulation defects
CPT/HCPCS: 88305; 88311; 88312; 36415; 38222; 77012; 85025; 85610; 88313

== ENCOUNTER → 2024-12-08 10:07 | Outpatient (REF) | payer MEDICARE, SELFPAY ==
[2024-12-08 10:45] VITALS: BP 121/76; BP_SYST 53
[2024-12-08 12:12] VITALS: BP 127/77
== END ==
LOC: RADI 10:07
PROVIDERS: ATTENDING PHYSICIAN Internal Medicine Hematology & Oncology; FAMILY PHYSICIAN Family Medicine
DX: C77.0 Secondary and unspecified malignant neoplasm of lymph nodes of head, face and neck (principal); C68.9 Malignant neoplasm of urinary organ, unspecified
CPT/HCPCS: 88305; 38505; 76937; 88333; 88341; 88342

== ENCOUNTER → 2024-12-16 16:28 | Outpatient (REF) | payer MEDICARE, SELFPAY ==
[2024-12-16 15:26] LABS: % Basophils 0.4 % (0-2); % Eosinophils 0.8 % (0-6); % Immature Granulocytes 0.3 % (0-0.5); % Lymphocytes 9.7 % (20.5-51.1); % Monocytes 11.4 % (1.7-9.3); % Neutrophils 77.4 % (42.2-75.2); Absolute Eosinophils 0.1 10^3/uL (0-0.7); Absolute Lymphocytes 1.1 10^3/uL (1.2-3.4); Absolute Monocytes 1.3 10^3/uL (0.1-0.6); Absolute Neutrophils 8.8 10^3/uL (1.4-6.5); Hematocrit 25.9 % (39.0-52.0); Hemoglobin 8.3 g/dL (13.0-18.0); Mean Corpuscular Hgb 29.4 pg (27.0-31.0); Mean Corpuscular Volume 91.8 fL (80.0-94.0); Mean Platelet Volume 10.7 fL (7.4-10.4); Platelet Count 373 10^3/uL (130-400); Red Blood Cell Count 2.82 10^6/uL (4.70-6.10); Red Cell Dist. Width 14.1 % (11.5-14.5); White Blood Cell Count 11.3 10^3/uL (4.8-10.8)
[2024-12-16 16:10] LABS: ALT (SGPT) 17 U/L (0-50); AST (SGOT) 23 U/L (17-59); Albumin 3.4 g/dl (3.5-5.0); Alkaline Phosphatase 120 U/L (38-126); Blood Urea Nitrogen 19 mg/dl (9-20); Calcium 9.4 mg/dl (8.4-10.2); Carbon Dioxide 24 mmol/L (22-30); Chloride 103 mmol/L (98-107); Glucose 85 mg/dl (70-99); Potassium 5.1 mmol/L (3.5-5.1); Sodium 134 mmol/L (135-145); Total Bilirubin 0.3 mg/dl (0.2-1.3); Total Protein 6.9 g/dl (6.3-8.2); eGFR > 60.00
== END ==
LOC: OIDL 16:28
PROVIDERS: ATTENDING PHYSICIAN Internal Medicine Hematology & Oncology
DX: I82.3 Embolism and thrombosis of renal vein (principal); D50.0 Iron deficiency anemia secondary to blood loss (chronic); R91.1 Solitary pulmonary nodule; C65.1 Malignant neoplasm of right renal pelvis
CPT/HCPCS: 80053; 85025; 86850; 86900; 86901